=== PATIENT | male | born 1980 | race Caucasian/White ===

== ENCOUNTER 2023-08-09 20:09 | Emergency (ER) | payer BC, SELFPAY ==
--- NOTE | ~2023-08-09 | XR_ITS ---
EXAMINATION: XR chest 1V portable Exam Date/Time: 08/09/2023 20:32 CDT HISTORY: SOB, RT RIB PAIN, COUGH Comparison: None. RESULT: Lines, tubes, and devices: Right proximal humeral screw and plate fixation hardware. Lungs and pleura: Clear. Cardiomediastinal silhouette: Stable. Other: No acute osseous or upper abdominal finding. IMPRESSION: No acute cardiopulmonary process. Reviewed, dictated and finalized at location K.
[2023-08-09 20:14] VITALS: BP 124/88; PULSE 78; RESP 18; TEMP 36.8; O2SAT 100
--- NOTE | 2023-08-09 20:14 | ED.GENADULT ---
HPI - General Adult General Chief complaint: Upper Respiratory Infection Stated complaint: RIB PAIN, COUGH Time Seen by Provider: 08/09/23 20:14 History of Present Illness HPI narrative: Patient is a 43-year-old male who presents to the emergency department this evening complaining of right-sided rib pain. Patient admits that he has been coughing due to an upper respiratory infection and shortly prior to arrival to the emergency department felt some sharp right-sided rib pain. Patient denies any injuries to his ribs, a recent falls or trauma. Patient denies any fevers or chills or any exposure to sick contacts, however, patient does admit that he is homeless. He denies any chest pain, and has no additional complaints at this time. Related Data Allergies Allergy/AdvReac Type Severity Reaction Status Date / Time No Known Allergies Allergy Verified 08/09/23 21:36 Review of Systems Review of Systems: All systems are reviewed and are negative unless stated otherwise in the HPI. Exam Narrative: General: Alert, awake, afebrile, in no acute distress, dry cough. Neck: Trachea midline, no JVD, no lymphadenopathy. Cardiovascular: Regular rate and rhythm, no murmurs, rubs or gallops, no peripheral edema. Respiratory: Clear to auscultation bilaterally, no tachypnea, no wheezing, no rhonchi, no rubs, no respiratory distress. Abdomen: Soft, nontender, nondistended, no rebound, no guarding, no peritoneal signs. Musculoskeletal: No joint swelling or deformity, normal muscle tone, tenderness to palpation along the right 4th through 6th rib, no overlying ecchymosis. Skin: No rashes or petechia, no signs of infection. Psychiatric: Normal behavior and judgment for situation. Neurological: Alert and oriented to person, place, and time. Follows all commands. No focal deficits, speech is clear and fluent. Course Vital Signs Vital signs: Vital Signs Temperature 98.2 F 08/09/23 20:14 Pulse Rate 78 08/09/23 20:14 Respiratory Rate 18 08/09/23 20:14 Blood Pressure 124/88 08/09/23 20:14 Pulse Oximetry 100 08/09/23 20:14 Oxygen Delivery Room Air 08/09/23 20:14 Temperature 98.2 F 08/09/23 20:14 Pulse Rate 77 08/09/23 21:54 Respiratory Rate 16 08/09/23 21:54 Blood Pressure 122/77 08/09/23 21:54 Pulse Oximetry 99 08/09/23 21:54 Oxygen Delivery Room Air 08/09/23 20:20 Medical Decision Making MDM Narrative Medical decision making narrative: The patient was evaluated by myself in the emergency department. History is obtained from patient who is an independent historian and physical exam was performed. External medical records were reviewed at this time. Patient was administered 15 mg of IM Toradol for pain. Viral swab were obtained and noted to be negative. Imaging studies obtained included CXR which was independently interpreted by me revealing no acute process, which is pending final radiology interpretation. Differential diagnosis considerations include rib fractures, chest wall, costochondritis and pneumothorax although unlikely given the patient's lack of shortness of breath. Comorbidities impacting this visit include none. I have evaluated and discussed social determinants of health with the patient that could potentially impact subsequent diagnosis and treatment plans. On repeat assessment of the patient, reevaluation revealed that the patient is doing well and is in no acute distress. Patient symptoms have improved since he arrived to our emergency department. Repeat vital signs were all reviewed and noted to be stable. Differential diagnosis and treatment plan were discussed with the patient at bedside. Patient agrees with discussion and after shared medical decision making agrees with discharge. All questions were answered to the patient's satisfaction. Patient was provided with a primary care physician to follow up with in 3-5 days. Patient was provided with strict return precaution
[2023-08-09 20:20] VITALS: O2SAT 100
[2023-08-09 21:25] LABS: Influenza A QL RT-PCR Negative (Negative); Influenza B QL RT-PCR Negative (Negative); RSV RNA, RT-PCR Negative (Negative); SARS-CoV-2 RNA PCR Negative (Negative)
[2023-08-09] MEDS: KETOROLAC 30 MG/ML VIAL (*BKC) 15 MG IM (21:37)
[2023-08-09 21:54] VITALS: BP 122/77; PULSE 77; RESP 16; O2SAT 99
== END 2023-08-09 21:55 | disposition home or self-care (01) ==
PROVIDERS: Emergency Provider Emergency Medicine
DX: J20.9 Acute bronchitis, unspecified (principal); R07.81 Pleurodynia; Z20.822 Contact with and (suspected) exposure to COVID-19
CPT/HCPCS: 71045; 87637; 96372; 99283; J1885

== ENCOUNTER 2024-11-25 18:06 | Emergency (ER) | payer BC, SELFPAY ==
[2024-11-25 18:04] VITALS: BP 102/68; PULSE 61; RESP 20; TEMP 36.8
[2024-11-25 18:12] VITALS: PULSE 58; RESP 20; O2SAT 92
--- NOTE | 2024-11-25 18:21 | PC.NURSE ---
Pt states unable to give urine sample at this time.
[2024-11-25 18:22] VITALS: TEMP 36.6
[2024-11-25] MEDS: SODIUM CHLORIDE 0.9% IV 1,000 ML 999 ML IV CONT ×2 (18:23→20:15)
[2024-11-25] MEDS: ONDANSETRON INJ 4 MG/2 ML VIAL IV PUSH (18:24)
--- NOTE | 2024-11-25 18:27 | ED_ITS ---
HPI - General Adult General Chief complaint: Environmental Exposure Stated complaint: heat emergency Time Seen by Provider: 11/25/24 18:12 Source: patient and EMS Mode of arrival: EMS Limitations: no limitations History of Present Illness HPI narrative: 44-year-old male presenting for ?heat exposure ?. EMS was called because he was lying on a hillside in the sun. He told EMS that he could move very well and he was hurting all over. He was able to stand up on his own with minor help from EMS. Tells me that he drank some alcohol today, smokes marijuana. Related Data Allergies Allergy/AdvReac Type Severity Reaction Status Date / Time No Known Allergies Allergy Verified 08/09/23 21:36 Review of Systems 2 Review of Systems: All systems reviewed & are unremarkable except as noted in HPI and below (HPI) Exam 2 Narrative: Constitutional: Generally well appearing, no acute distress Head: Atraumatic, no deformities. Eyes: Pupils equal, round, and reactive to light. Neck: Supple, no tracheal deviation, no JVD. ENMT: Mucous membranes moist Cardiovascular: S1, S2 auscultated. No murmurs, rubs, or gallops. No S3/S4. Normal Distal pulses. No peripheral edema. Respiratory: Lung sounds equal. No wheezes, rales, or rhonchi. Gastrointestinal: Abdomen was soft and non-tender. Non-distended. No rebound or guarding. Genitourinary: Deferred Musculoskeletal: Normal muscle tone and bulk. No obvious deformities or tenderness over extremities. Skin: No rashes. Neurological: Strength 5/5 in extremities. Cranial nerves I-XII grossly intact. Distal sensation intact. Mental Status: Awake, alert and oriented x3. Follows commands Course Vital Signs Vital signs: Vital Signs Temperature 36.8 C 11/25/24 18:04 Pulse Rate 61 11/25/24 18:04 Respiratory Rate 20 11/25/24 18:04 Blood Pressure 102/68 11/25/24 18:04 Temperature 36.6 C 11/25/24 18:22 Pulse Rate 53 L 11/25/24 19:32 Respiratory Rate 17 11/25/24 19:32 Blood Pressure 83/55 L 11/25/24 19:32 Pulse Oximetry 96 11/25/24 19:32 Medical Decision Making [facility] Narrative Medical decision making narrative: Patient presenting for complaints of heat exposure, body aches. He tells me feels very weak. He smells of alcohol. Vitals are regular. Does not appear overtly dehydrated. After some coaxing, he does move all extremities. No asymmetry or signs of neurological deficit. Suspect potentially heat exposure, alcohol intoxication, drug intoxication. Obtaining labs, alcohol and drug screen, and treating with IV fluid bolus. Alcohol level quite elevated over 200. 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 He is resting comfortably. He is arousable, oriented x4. Will allow him to Sober up and then be discharged. Pt feeling improved and would like to go home at this point. Return precautions were given to the patient include any new or worsening symptoms or development of and not limited to any chest pain, shortness of breath, lightheadedness, abdominal pain, fevers, chills. Patient understands and agrees. They are to follow-up with her PCP. All questions were answered. I reviewed and interpreted the patient's vital signs, pulse oximetry, cardiac monitor technician, history, allergies, and labs and imaging workup. Vital Signs Vital Signs: Vital Signs Temperature 36.8 C 11/25/24 18:04 Pulse Rate 61 11/25/24 18:04 Respiratory Rate 20 11/25/24 18:04 Blood Pressure 102/68 11/25/24 18:04 Temperature 36.6 C 11/25/24 18:22 Pulse Rate 53 L 11/25/24 19:32 Respiratory Rate 17 11/25/24 19:32 Blood Pressure 83/55 L 11/25/24 19:32 Pulse Oximetry 96 11/25/24 19:32 Lab Data 11/25/24 18:34 11/25/24 18:34 Labs: Lab Results 11/25/24 11/25/24 11/25/24 Range/Units 18:12 18:34 19:30 WBC 8.6 (4.5-10.0) K/mm3 RBC 3.92 L (4.6-6.20) M/mm3 Hgb 11.1 L (14.0-18.0) g/dL Hct 34.0 L (42.0-52.0) % MCV 86.7 (80-100) fl MCH 28.3 (26-34) pg MCHC 32.6 (32-36) g/dl RDW 14.3 (11.5-14.5) % Plt Count 186 (150-375) k/mm3 MPV 10.7 H (7.4-10.4) fl Immature Gran % (Auto) 0.6 H (0-0.5) % Neut % (Auto) 73.6 H (45.5-73.1) % Lymph % (Auto) 18.2 L (18.3-44.2) % Pratt % (Auto) 6.3 (2.6-8.5) % Eos % (Auto) 0.8 (0-4.4) % Baso % (Auto) 0.5 (0.2-1.2) % Lymph # (Auto) 1.56 (0.9-3.2) K/mm3 Pratt # (Auto) 0.5 (0.1-0.6) K/mm3 Eos # (Auto) 0.1 (0-0.3) K/mm3 Baso # (Auto) 0.0 (0.0-0.1) K/mm3 Abs Immat Gran (auto) 0.05 H (0.00-0.031) K/mm3 Absolute Neuts (auto) 6.3 (1.3-6.7) K/mm3 Absolute Nucleated RBC 0.000 (0.0-0.012) K/mm3 Nucleated RBC % 0.0 (0.0-0.2) % Sodium 141 (137-145) mmol/L Potassium 3.6 (3.4-5.0) mmol/L Chloride 110 H (98-107) mmol/L Carbon Dioxide 24 (22-30) mmol/L Anion Gap 7 (4-12) mmol/L BUN 8 L (9-20) mg/dL Creatinine 1.02 (0.7-1.3) mg/dL Estim Creat Clear Calc 66 ml/min Estimated GFR > 60 (59 - ) Glucose 99 (65-110) mg/dL POC Capillary Glucose 109 H (65-105) mg/dl Calcium 8.1 L (8.4-10.2) mg/dL Total Bilirubin 0.4 (0.2-1.3) mg/dL AST 26 (17-59) U/L ALT 15 (6-50) U/L Alkaline Phosphatase 55 (38-126) U/L Total Creatine Kinase 160 (55-170) U/L Troponin I < 0.012 (0.000-0.034) ng/mL Total Protein 6.1 L (6.3-8.2) g/dL Albumin 3.4 L (3.5-5.1) g/dL Urine Color Yellow (Yellow) Urine Appearance Clear (Clear) Urine pH 5.5 (5.0-9.0) Ur Specific [place] 1.014 (1.001-1.035) Urine Protein Negative (Negative) mg/dL Urine Glucose (UA) Negative (Negative) mg/dL Urine Ketones Trace H (Negative) mg/dL Ur Blood (Man) Negative (Negative) Urine Nitrate Negative (Negative) Urine Bilirubin Negative (Negative) Urine Urobilinogen 0.2 (<2.0) mg/dL Leukocyte Esterase Rfl Negative (Negative) CATHERINE/UL Urine Opiates Screen Negative (Negative) Urine Methadone Screen Negative (Negative) Ur Barbiturates Screen Negative (Negative) Ur Phencyclidine Scrn Negative (Negative) Ur Amphetamine Screen Negative (Negative) U Benzodiazepines Scrn Negative (Negative) Urine Cocaine Screen Negative (Negative) U Cannabinoids Screen Positive A (Negative) Ethyl Alcohol 224 (<10) mg/dL Discharge Plan Discharge Clinical Impression: Alcohol intoxication Qualifiers: Complication of substance-induced condition: uncomplicated Qualified Code(s): F 10.920 - Alcohol use, unspecified with intoxication, uncomplicated Heat exposure Qualifiers: Encounter type: initial encounter Qualified Code(s): T67.9XXA - Effect of heat and light, unspecified, initial encounter Patient Disposition: Home Condition: Stable Instructions: Antibiotic Form, Heat Exhaustion (ED), Abuse of Alcohol (DC) Patient Language: Belgian Follow-up/Referrals: PHYSICIAN,DIGITAL PRODUCT MANAGER [Primary Care Provider] - Time of Disposition: 21:39
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
[2024-11-25 19:13] LABS: Hematocrit 34.0 % (42.0-52.0); Hemoglobin 11.1 g/dL (14.0-18.0); Immature Granulocyte Percent A 0.6 % (0-0.5); Lymphocytes Absolute Auto 1.56 K/mm3 (0.9-3.2); Mean Corpuscular HGB Conc 32.6 g/dl (32-36); Mean Corpuscular Hemoglobin 28.3 pg (26-34); Mean Corpuscular Volume 86.7 fl (80-100); Nucleated Red Blood Cells Absolute Auto 0.000 K/mm3 (0.0-0.012); Nucleated Red Blood Cells Perc 0.0 % (0.0-0.2); Platelet Count Result 186 k/mm3 (150-375); Red Blood Count 3.92 M/mm3 (4.6-6.20); White Blood Count 8.6 K/mm3 (4.5-10.0)
[2024-11-25 19:32] VITALS: BP 83/55; PULSE 53; RESP 17; O2SAT 96
[2024-11-25 19:37] LABS: Add Urine Microscopic? NO; Appearance Urine Clear (Clear); Glucose Urine UA Negative (Negative); Leukocyte Esterase Ur Negative LEU/UL (Negative); Nitrate Urine Negative (Negative); Specific Grav Ur 1.014 (1.001-1.035)
[2024-11-25 19:54] LABS: Alanine Aminotransferase 15 U/L (6-50); Albumin Level 3.4 g/dL (3.5-5.1); Alkaline Phosphatase 55 U/L (38-126); Anion Gap 7 mmol/L (4-12); Aspartate Amino Transferase 26 U/L (17-59); Bilirubin,Total 0.4 mg/dL (0.2-1.3); Blood Urea Nitrogen 8 mg/dL (9-20); Calcium 8.1 mg/dL (8.4-10.2); Carbon Dioxide 24 mmol/L (22-30); Chloride 110 mmol/L (98-107); Creatine Kinase 160 U/L (55-170); Estimated CRCL calculation 66 ml/min; Estimated Glomerular Filt Rate > 60; Glucose 99 mg/dL (65-110); Potassium 3.6 mmol/L (3.4-5.0); Sodium 141 mmol/L (137-145); Total Protein 6.1 g/dL (6.3-8.2)
[2024-11-25 20:11] LABS: Troponin I < 0.012 ng/mL (0.000-0.034)
[2024-11-25 20:12] LABS: Cannabinoid Screen Urine Positive (Negative)
[2024-11-25 21:36] VITALS: BP 106/65; PULSE 49; RESP 14; O2SAT 97
[2024-11-26 01:45] VITALS: BP 106/67; PULSE 65; RESP 13; O2SAT 99
[2024-11-26 02:54] VITALS: BP 106/67; PULSE 65; RESP 13; O2SAT 99
== END 2024-11-26 02:56 | disposition home or self-care (01) ==
PROVIDERS: Emergency Provider Emergency Medicine
DX: T67.8XXA Other effects of heat and light, initial encounter (principal); R53.1 Weakness; F10.120 Alcohol abuse with intoxication, uncomplicated; Y90.7 Blood alcohol level of 200-239 mg/100 ml; X30.XXXA Exposure to excessive natural heat, initial encounter
CPT/HCPCS: 36415; 80053; 80307; 81003; 82077; 82550; 82948; 84484; 85025; 96361; 96374; 99284; J2405; J7030